=== PATIENT | female | born 1975 | race Two or more races ===

== ENCOUNTER 2020-04-25 10:00 | Inpatient (IN) | payer OTHER ==
[~2020-04-25] VITALS: Ht 170.2 cm; Wt 71.2 kg
[2020-04-25] MEDS ORDERED: DERMACINRX5000 UNIT PO (11:24)
[2020-04-25] MEDS ORDERED: VITAMIN C500 M6 PO (11:25)
[2020-05-02] MEDS ORDERED: VITAMIN D31250 MCG (13:13)
[2020-05-02] MEDS ORDERED: PHENTERMINE HCL30 MG PO (13:13)
[2020-05-05] MEDS ORDERED: Tylenol #3 PO (13:24)
== END 2020-05-05 13:51 | disposition home or self-care (01) | DRG 743 ==
LOC: O/R 05-02 07:11 → SURH 05-02 10:00 → OB/GYN 05-02 20:00 → SURH 05-02 21:45 → OB/GYN 05-05 13:51
PROVIDERS: ADMIT Obstetrics & Gynecology; ATTEND Obstetrics & Gynecology
PROC: 0UB50ZZ Excision of Right Fallopian Tube, Open Approach (ICD-10-PCS; 2020-05-02)
PROC: 0UQF0ZZ Repair Cul-de-sac, Open Approach (ICD-10-PCS; 2020-05-02)
PROC: 0UT90ZZ Resection of Uterus, Open Approach (ICD-10-PCS; principal; 2020-05-02 21:45)
DX: N80.0 Endometriosis of uterus (principal); D25.2 Subserosal leiomyoma of uterus; N81.5 Vaginal enterocele; D64.89 Other specified anemias